=== PATIENT | female | born 1960 | race Caucasian/White ===

== ENCOUNTER 2017-01-04 15:57 | Emergency (ER) | payer SELFPAY ==
[~2017-01-04] VITALS: Ht 160 cm; Wt 62.6 kg
[2017-01-04] MEDS ORDERED: CELLCEPT500 MG PO (16:06)
[2017-01-04] MEDS ORDERED: OMEPRAZOLE20 MG PO (16:06)
[2017-01-04] MEDS ORDERED: AMLODIPINE BESY10 MG PO (16:07)
[2017-01-04] MEDS ORDERED: AUGMENTIN 875-1 EACH PO (17:47)
[2017-01-04] MEDS ORDERED: NORCO 5-325 TA1 EACH PO (17:47)
== END 2017-01-04 16:12 | disposition home or self-care (01) ==
LOC: ED 15:57
DX: Z00.8 Encounter for other general examination (principal)

== ENCOUNTER 2017-01-04 17:06 | Emergency (ER) | payer BC ==
[~2017-01-04] VITALS: Ht 160 cm; Wt 62.6 kg
[~2017-01-04 17:06] MED LIST: AMLODIPINE BESY10 MG PO; CELLCEPT500 MG PO; OMEPRAZOLE20 MG PO
[2017-01-04] MEDS ORDERED: NORCO 5-325 TA1 EACH PO (17:47)
[2017-01-04] MEDS ORDERED: AUGMENTIN 875-1 EACH PO (17:47)
== END 2017-01-04 18:08 | disposition home or self-care (01) ==
LOC: ED 17:06
DX: K04.7 Periapical abscess without sinus (principal); Z90.710 Acquired absence of both cervix and uterus; Z79.899 Other long term (current) drug therapy
CPT/HCPCS: 99283